=== PATIENT | female | born 1970 | race Caucasian/White ===

== ENCOUNTER 2016-11-25 17:01 | Emergency (ER) | payer MEDICAID ==
[~2016-11-25] VITALS: Ht 165.1 cm; Wt 64.4 kg
[~2016-11-25 17:01] MED LIST: CIPRO 500MG TA500 MG PO; EC NAPROSYN500 MG PO; FLEXERIL10 MG PO; IBU-8800 MG PO; LORTAB 5/500 501 TAB PO; MEDROL 4MG. DOSE4 MG PO; MOTRIN600 M1 PO; NOMEDS *; PHENERGAN 25MG.25 M1 PO; PREDNISONE 10MG10 MG PO; PREDNISONE 20MG20 MG PO; PROZAC40 MG PO; PYRIDIUM200 M2 PO; REMERON15 MG PO; RITALIN20 MG PO; TESSALON PERLE100 MG PO; TORADOL10 MG PO; TRAMADOL 50MG T50 M1 PO; TRAMADOL 50MG T50 MG PO; TYLENOL W/CODEI1 TA2 PO; ULTRAM50 MG PO; VICODIN 5/500 T1 TAB PO; ZITHROMAX Z-PA250 M1 PO
[2016-11-25] MEDS ORDERED: WELLBUTRIN SR100 MG PO (18:10)
[2016-11-25 18:28] LABS: UTC STREP SCREEN NOT DETECTED (NOTDETECTED)
--- NOTE | 2016-11-25 18:54 | [facility] Report ---
History of Present Issue Date/Time Seen by Provider 11/25/16 1830 Visit Reason Pt arrived:Walked Presenting Problem:PATIENT STATES SHE HAS HEADACHE AND CONGESTION Location if Accident: Onset of symptoms date/time:/ or onset unknown for:MEDICAL HX UNKNOWN Have you (or family members/close friends) recently traveled outside the [place]? N If Yes, where/when: Have you had exposure to infectious disease within the past month? TB? Other? Specify: c/o sore throat, rhinorrhea, nasal congestion, tactile fever,, aches, nonprod cough all starting last night. Daughter w/ same symptoms starting today but negative for strep and flu. Neither have had flu vaccine. Pt denies SOA, wheezing. Hasn't taken or tried anything for symptoms and wanting to return to work tomorrow. Source patient Exam Limitations no limitations ALLERGIES Coded Allergies: No Known Allergies (03/19/16) Home Medications Active Scripts Ciprofloxacin HCl (Cipro 500MG TAB) 500 MG PO BID #14 TAB Prov: 03/19/16 Phenazopyridine HCl (Pyridium) 200 MG PO TID #10 TAB Prov: 03/19/16 Reported Medications BUPROPION HCL SR (Wellbutrin SR 100MG) 75 MG PO BID History Medical History General CAD? No Angina: No PR: No Hypertension? No Hyperlipidemia? No CHF? No DVT? No PE? No COPD? No Asthma? No Anemia? No GERD? No Gastric ulcers? No GI Bleed? No Hernia? No Thyroid Problems? No Hypothyroidism? No CVA? No Seizures? No Diabetes? No Insulin Dependent: No Insulin Pump: No Home FSBS? No Renal Insuffiency? No UTI? No Stones? No BPH? No GB Disease: No Nephritic Syndrome? No Asplenia? No Hepatitis? No Sickle Cell Disease? No Arthritis? No Migraines? No Cataracts? No Glaucoma? No MRSA? No HIV? No TB? No Anxiety? No Depression? No Cancer? No More? Yes Additional hx: Immunization HX DT/Tetanus 1-4 Years Ago Surgical Hx Previous Surgery?Y Tubal Ligation Social History Smoking Hx Smoker: Current Every Day Smoker Tobacco: Yes Type Cigarettes Packs/day < 1 Pack Alcohol Alcohol: No Review of Systems All Other Systems Reviewed and Negative Constitutional see HPI Eyes denies no symptoms reported ENT see HPI. denies: ear pain, ear discharge, throat swelling. Respiratory see HPI Skin denies rash Psychiatric/Neurological denies headache Physical Exam Vital Signs Vital Signs Date Time Temp Pulse Resp B/P Pulse O2 O2 Flow FiO2 Ox Delivery Rate 11/25 1807 99.1 93 18 121/81 98 General Appearance normal appearance, no apparent distress Eye Exam - bilateral eye normal exam Ear, Nose, Throat normal ENT inspection Neck non-tender, supple Respiratory Status Yes: non productive cough (once during visit). No: respiratory distress. Lung Sounds anterior: lungs clear. posterior: lungs clear. bilateral: lungs clear. Cardiovascular regular rate/rhythm, no murmur Neurologic alert Skin warm/dry Lymphatic no adenopathy (cervical) Medical Decision Making LABS/Meds/Orders Pt receiving controlled substance in ED? No Results/Orders Laboratory Tests 11/25/161817: Influenza Type A Ag NOT DETECTED, Influenza Type B Ag NOT DETECTED, Group A Strep Screen NOT DETECTED Orders Procedure Date/time Status UTC STREP SCREEN 11/25 1817 Complete UTC FLU A,B 11/25 1817 Complete Departure Departure Time of Disposition 1851 Disposition DC Home or Self Care(routine) Clinical Impression Primary Impression: Viral pharyngitis Condition STABLE Referrals BALAJI DUEÑAS (Family) Immediately for new or worsening symptoms 2-3 days for final throat culture results and if no noticeable improvement Patient Instructions DI for Viral Pharyngitis Additional Instructions Increase fluids warm or cold fluids, try each and do whichever feels best Can try salt water gargles sore throat lozenges monitor temp to help guide treatment, rather or not improving and when to return to work. Discharge Counseling Counseled pt/family regarding diagnosis, test results, medications/RX, home care, follow up needs at 1854
[2016-11-25 18:55] VITALS: BP 121/81
== END 2016-11-25 18:56 | disposition home or self-care (01) ==
LOC: UTC 17:01
PROVIDERS: Nurse Practitioner Family
DX: J02.9 Acute pharyngitis, unspecified (principal)